=== PATIENT | female | born 1990 | race Caucasian/White ===

== ENCOUNTER 2019-12-06 08:31 | Outpatient (CLI) | payer SELFPAY ==
[2019-12-08 22:30] LABS: Patient Race White; SARS-CoV-2 RNA Undetected (Undetected); SARS-CoV-2 Specimen Source Nasal
== END 2019-12-06 08:51 ==
PROVIDERS: PCP Pediatrics; Visit Provider Pediatrics
DX: Z20.828 Contact with and (suspected) exposure to other viral communicable diseases (principal)
CPT/HCPCS: U0003